=== PATIENT | male | born 1975 | race Caucasian/White ===

== ENCOUNTER 2021-06-20 10:12 | Emergency (ER) | payer BC ==
[~2021-06-20] VITALS: Ht 182.9 cm; Wt 90.0 kg
[2021-06-20 10:30] VITALS: BP 133/85
[2021-06-20] MEDS ORDERED: NAPR-56 PO (10:33)
[2021-06-20] MEDS ORDERED: ORPH100T2 PO (10:33)
--- NOTE | 2021-06-20 10:44 | NUR ---
Patient assessed by MAGDALENO [place]or
== END 2021-06-20 10:39 | disposition home or self-care (01) ==
LOC: ER 10:12
DX: S39.012A Strain of muscle, fascia and tendon of lower back, initial encounter (principal); M62.830 Muscle spasm of back; Z79.899 Other long term (current) drug therapy; X50.1XXA Overexertion from prolonged static or awkward postures, initial encounter; Y93.89 Activity, other specified; Y92.89 Other specified places as the place of occurrence of the external cause; Y99.8 Other external cause status
CPT/HCPCS: 99283